=== PATIENT | male | born 1955 | race Caucasian/White ===

== ENCOUNTER → 2023-06-13 | Outpatient (CLI) | payer BC ==
[2023-06-13 16:46] LABS: Basophils # (A) 0.05 X 10*3/uL (0.00-0.10); Basophils % (A) 0.6 %; Eosinophils # (A) 0.06 X 10*3/uL (0.04-0.35); Eosinophils % (A) 0.8 %; HCT 49.9 % (39.6-50.0); HGB 16.5 g/dL (13.0-17.0); Lymphocytes % (A) 15.3 %; MCH 31.8 pg (27.0-32.0); MCHC 33.1 g/dL (32.0-37.0); MCV 96.1 FL (80.0-97.0); Mean Platelet Volume 11.1 FL (9.5-12.2); Monocytes # (A) 0.73 X 10*3/uL (0.20-1.00); Monocytes % (A) 9.3 %; NRBC Per 100 WBC 0 X 10*3/uL (0.00-0.01); Neutrophils # (A) 5.77 X 10*3/uL (1.80-7.70); Neutrophils % (A) 73.6 %; Platelet Count 219 X 10*3/uL (140-440); RBC 5.19 X 10*6/uL (4.40-5.60); RDW 11.9 % (11.5-14.5); WBC 7.84 X 10*3/uL (4.50-10.00)
[2023-06-13 17:03] LABS: Erythrocyte Sedimentation Rate 14 mm/Hr (0-20)
[2023-06-13 17:07] LABS: ALT 23 U/L (10-49); AST 21 U/L (14-35); BUN/Creat Ratio 28.75 Ratio (12.00-20.00); Calcium 9.4 mg/dL (8.7-10.3); Carbon Dioxide 24.3 mmol/L (21.6-31.8); Chloride 102 mmol/L (96-109); Creatine Kinase 292 U/L (35-257); Glucose 123 mg/dL (70-110); Potassium 4.7 mmol/L (3.5-5.5); Rheumatoid Factor, Qnt <15 IU/mL (0-15); Sodium 140 mmol/L (135-145); Uric Acid 4.7 mg/dL (3.7-8.7)
[2023-06-13 22:42] LABS: Cyclic Citrull Pep IgG Unit <1.5 U/mL (<=3.9); Cyclic Citrullinated Pep IgG Negative
[2023-06-14 08:19] LABS: Angiotensin-1 Converting Enz. 7 U/L (8-52)
[2023-06-14 10:41] LABS: HLA B27 NEGATIVE
== END | disposition home or self-care (01) ==
LOC: LABWHC1 10:11
PROVIDERS: ATTEND Orthopaedic Surgery
DX: M25.641 Stiffness of right hand, not elsewhere classified (principal); M19.031 Primary osteoarthritis, right wrist; M19.041 Primary osteoarthritis, right hand; M19.042 Primary osteoarthritis, left hand; M25.642 Stiffness of left hand, not elsewhere classified; M19.032 Primary osteoarthritis, left wrist; G56.03 Carpal tunnel syndrome, bilateral upper limbs; M18.0 Bilateral primary osteoarthritis of first carpometacarpal joints
CPT/HCPCS: 36415; 80048; 82164; 82306; 82550; 83520; 84439; 84443; 84450; 84460; 84550; 85025; 85652; 86038; 86140; 86200; 86431; 86812